=== PATIENT | male | born 1995 | race Caucasian/White ===

== ENCOUNTER 2017-04-11 12:19 | Emergency (ER) | payer BC ==
[~2017-04-11] VITALS: Ht 185.4 cm; Wt 77.2 kg
[2017-04-11 12:25] VITALS: TEMP 37.7; Ht 185.4 cm; Wt 77.2 kg
[2017-04-11] MEDS ORDERED: CEFTRIAXONE SOD 350MG/ML 1 GM VIAL IM STA (12:40)
[2017-04-11] MEDS ORDERED: PENI-82 PO (12:44)
[2017-04-11] MEDS ORDERED: AZIT250T PO (12:44)
--- NOTE | 2017-04-11 12:45 | EMERGENCY ROOM VISIT NOTE ---
History First contact with patient: 12:28 Chief Complaint: SORETHROAT Stated Complaint: SORETHROAT, CHILLS, FEVER, OVERALL WEAKNESS History of Present Illness The patient is a 21 year old male who presents to the Emergency Room with complaints of sore throat. The patient states that he pulled an old miter several nights. He states that he has been sleeping a lot over the last 3-4 days. He developed a sore throat and fever 3-4 days ago. The sore throat has worsened. He rates his discomfort a 5/10. He denies any pain in his chest or trouble breathing. He denies any abdominal pain, nausea or vomiting. He denies any known sick contacts. The patient states that he did have a sexual encounter with a male and performed oral sex. He is concern for potential sexually transmitted infection. Review of Systems A 10 system review of systems was completed with positives and pertinent negatives listed in the HPI. Past Medical/Surgical History none Social History Smoking Status: Never Smoker Marital Status: single Occupation Status: [employer] student Current/Historical Medications Scheduled Azithromycin (Zithromax), 1,000 MG PO DAILY Penicillin V Potassium (Veetids), 500 MG PO QID Physical Exam Vital Signs Date Time Temp Pulse Resp B/P (MAP) Pulse Ox O2 Delivery O2 Flow Rate FiO2 04/11/17 13:15 88 16 105/58 98 04/11/17 12:25 98 Room Air 04/11/17 12:25 37.7 99 18 109/70 98 Room Air Physical Exam VITALS: Vitals are noted on the nurse's note and reviewed by myself. Vital signs stable. The temperature is 37.7C. GENERAL: This is a 21-year-old male, in no acute distress, nondiaphoretic, well- developed well-nourished. SKIN: The skin was without rashes, erythema, edema, or bruising. There is no tenting of the skin. Capillary reflex less than 2 seconds. HEAD: Normocephalic atraumatic. EARS: External auditory canals clear, tympanic membranes pearly carroll without erythema or effusion bilaterally. EYES: Pupils equal round and reactive to light and accommodation. Conjunctivae without injection, sclerae without icterus. Extraocular movements intact. NOSE: Patent, turbinates without inflammation or discharge. MOUTH: Mucous membranes moist. There are ulcerations in the posterior pharynx. There is erythematous. There is exudate. There is no uvula deviation. There is no soft palate involvement, drooling or trismus. NECK: Supple without nuchal rigidity. No lymphadenopathy. No thyromegaly. Cervical spine is nontender. No JVD. HEART: Regular rate and rhythm without murmurs gallops or rubs. LUNGS: Clear to auscultation bilaterally without wheezes, rales or rhonchi. No dullness to percussion. No retractions or accessory muscle use. MUSCULOSKELETAL: No muscle atrophy, erythema, or edema noted. Full range of motion in all extremities. Strength 5/5 throughout. NEURO: Patient was alert and oriented to person place and time. No focal neurological deficits. Medical Decision & Procedures Medications Administered Medications (Trade) Dose Ordered Sig/Aletha Route Start Time Stop Time Status Last Admin Dose Admin Ceftriaxone Sodium (Rocephin Im) 250 mg NOW STAT IM 04/11/17 12:40 04/11/17 12:41 DC 04/11/17 13:07 250 MG ED Course The patient was seen and examined. The patient presents to the emergency department with sore throat and low-grade fever. The patient does have erythema and ulceration in the posterior pharynx. There is no sign of peritonsillar abscess. There is no significant drainage. I do suspect strep pharyngitis. However, the patient states that he did have a sexual encounter with a male and performed oral sex. He is concerned of possible STD such as gonococcal pharyngitis. The patient is also quite concerned because his insurance is from [place] and he is not certain if anything will be covered here or how much he will be required to pay. I did offer to perform rapid strep and swab for gonorrhea. The patient would like to defer testing at this time and did ask for information for free outpatient STD testing. I did give him this information. Given the appearance of the throat, I will treat the patient with SameearVeflavio Reyes. Additionally, given the patient's recent sexual encounter and potential high risk behavior, he will be treated with 250 mg IM Rocephin and 1 g of oral Zithromax. He should return with any worsening symptoms. I did advise him that the potential that this could represent mononucleosis. I advised him to watch for rash. I advised him to follow up if he is not feeling any better in 5-7 days. He should return sooner with any worsening symptoms. Medical Decision The differential diagnosis includes viral illness, strep pharyngitis, mononucleosis, peritonsillar abscess, gonococcal pharyngitis, among others Medication Reconcilliation Current Medication List: was personally reviewed by me Blood Pressure Screening Patient's blood pressure: Normal blood pressure Blood pressure disposition: Did not require urgent referral Impression Primary Impression: Pharyngitis Departure Information Dispostion Home / Self-Care Prescriptions Penicillin V Potassium (Veetids) 500 Mg Tab 500 MG PO QID for 10 Days, #40 TAB Prov: Sophy Mendez PA-C 04/11/17 Azithromycin (Zithromax) 250 Mg Tab 1000 MG PO DAILY for 1 Day, #4 TAB Prov: Sophy Mendez PA-C 04/11/17 Referrals No Doctor, Assigned (PCP) Patient Instructions [facility] Additional Instructions Tylenol or ibuprofen according to package instructions for pain/fever Take the Zithromax 1 g 1 time. Rocephin and Zithromax will treat gonorrhea and chlamydia. Penicillin as prescribed, until finished to treat potential strep throat Follow up with one of the outpatient clinics for free STD testing Return with any worsening symptoms Problem Qualifiers Primary Impression: Pharyngitis
[2017-04-11 13:15] VITALS: BP 105/58; PULSE 88; O2SAT 98
== END 2017-04-11 13:16 | disposition home or self-care (01) ==
LOC: C.EDB 12:21 → C.EDD 13:16
DX: J02.9 Acute pharyngitis, unspecified (principal)

== ENCOUNTER 2017-10-20 23:44 | Emergency (ER) | payer BC ==
[~2017-10-20] VITALS: Ht 185.4 cm; Wt 73.4 kg
[~2017-10-20 23:44] MED LIST: NEOM1SUS21 OT
[2017-10-20 23:53] VITALS: TEMP 36.7; Ht 185.4 cm; Wt 73.4 kg
--- NOTE | 2017-10-21 00:06 | EMERGENCY ROOM VISIT NOTE ---
History Report prepared by Katherin: Zackery Juarez Under the Supervision of: Dr. Isaac Márquez M.D. First contact with patient: 00:00 Chief Complaint: VOMITING Stated Complaint: NAUSEA, VOMITING, EAR ISSUES Nursing Triage Summary: vomitted x 3 yesterday. still nauseated today but was able to eat and drink throughout the day today. - abd pain History of Present Illness The patient is a 21 year old male who presents to the Emergency Room with complaints of intermittent vomiting beginning yesterday. The patient states he vomited three times yesterday and was not able to eat anything because his stomach was upset. He reports he is also experiencing nausea yesterday and all of today. The patient notes he tried taking Pepto Bismol, but it did not help. He states his ears are also blocked. The patient reports the last thing he ate before his symptoms started was a piece of cheese. He notes he did not have diarrhea, but his stool was black. The patient states he believes his black stool was secondary to the Pepto. He denies a history of chronic diseases, abdominal pain, and fast food consumption. Source of History: patient Onset: yesterday Symptom Intensity: 3 times Quality: other (vomiting) Timing: intermittent Associated Symptoms: + nausea, No abdominal pain Note: Associated symptoms: black stool Review of Systems See HPI for pertinent positives & negatives. A total of 10 systems reviewed and were otherwise negative. Past Medical & Surgical Surgical Problems: (1) History of tonsillectomy Family History Cancer Diabetes mellitus Heart disease Hypertension Kidney disease Kidney stones Social History Smoking Status: Never Smoker Smokeless Tobacco Use: No Alcohol Use: occasionally Marital Status: single Housing Status: lives with roommate Occupation Status: [employer] student Current/Historical Medications Scheduled Ondasetron Odt (Zofran Odt), 4 MG SL Q6H Allergies Coded Allergies: No Known Allergies (Unverified , 10/21/17) Physical Exam Vital Signs Date Time Temp Pulse Resp B/P (MAP) Pulse Ox O2 Delivery O2 Flow Rate FiO2 10/21/17 00:44 63 18 117/67 97 Room Air 10/21/17 00:31 74 10/21/17 00:28 74 10/20/17 23:53 36.7 83 18 117/73 97 Room Air Physical Exam GENERAL: Awake, alert, well-appearing, in no acute distress HENT: Normocephalic, atraumatic. Oropharynx unremarkable. EYES: Normal conjunctiva. Sclera non-icteric. NECK: Supple. No nuchal rigidity. FROM. No JVD. RESPIRATORY: Clear to auscultation. CARDIAC: Regular rate, normal rhythm. Extremities warm and well perfused. Pulses equal. ABDOMEN: Soft, benign, non-distended. No tenderness to palpation. No rebound or guarding. No masses. RECTAL: Deferred. MUSCULOSKELETAL: Chest examination reveals no tenderness. The back is symmetrical on inspection without obvious abnormality. There is no CVA tenderness to palpation. No joint edema. LOWER EXTREMITIES: Calves are equal size bilaterally and non-tender. No edema. No discoloration. NEURO: Normal sensorium. No sensory or motor deficits noted. SKIN: No rash or jaundice noted. Medical Decision & Procedures ER Provider Diagnostic Interpretation: X-ray results as stated below per interpretation by me: One view of chest per my interpretation: Shows no evidence of pneumonia, pneumothorax, or congestion. Three view of the abdomen per my interpretation: Shows a fair amount of stool, no evidence of obstruction or free air. Laboratory Results 10/21/17 00:10 Red Blood Count 5.09, Mean Corpuscular Volume 91.9, Mean Corpuscular Hemoglobin 32.8, Mean Corpuscular Hemoglobin Concent 35.7, Mean Platelet Volume 9.5, Neutrophils (%) (Auto) 49.3, Lymphocytes (%) (Auto) 29.4, Monocytes (%) (Auto) 17.3, Eosinophils (%) (Auto) 3.6, Basophils (%) (Auto) 0.2, Neutrophils # (Auto ) 2.33, Lymphocytes # (Auto) 1.39, Monocytes # (Auto) 0.82, Eosinophils # (Auto ) 0.17, Basophils # (Auto) 0.01 10/21/17 00:10 Test 10/21/17 00:10 White Blood Count 4.73 K/uL (4.8-10.8) Red Blood Count 5.09 M/uL (4.7-6.1) Hemoglobin 16.7 g/dL (14.0-18.0) Hematocrit 46.8 % (42-52) Mean Corpuscular Volume 91.9 fL (80-100) Mean Corpuscular Hemoglobin 32.8 pg (25-34) Mean Corpuscular Hemoglobin Concent 35.7 g/dl (32-36) Platelet Count 189 K/uL (130-400) Mean Platelet Volume 9.5 fL (7.4-10.4) Neutrophils (%) (Auto) 49.3 % Lymphocytes (%) (Auto) 29.4 % Monocytes (%) (Auto) 17.3 % Eosinophils (%) (Auto) 3.6 % Basophils (%) (Auto) 0.2 % Neutrophils # (Auto) 2.33 K/uL (1.4-6.5) Lymphocytes # (Auto) 1.39 K/uL (1.2-3.4) Monocytes # (Auto) 0.82 K/uL (0.11-0.59) Eosinophils # (Auto) 0.17 K/uL (0-0.5) Basophils # (Auto) 0.01 K/uL (0-0.2) RDW Standard Deviation 45.9 fL (36.4-46.3) RDW Coefficient of Variation 13.7 % (11.5-14.5) Immature Granulocyte % (Auto) 0.2 % Immature Granulocyte # (Auto) 0.01 K/uL (0.00-0.02) Urine Color YELLOW Urine Appearance CLEAR (CLEAR) Urine pH 7.0 (4.5-7.5) Urine Specific [place] 1.024 (1.000-1.030) Urine Protein NEG (NEG) Urine Glucose (UA) NEG (NEG) Urine Ketones NEG (NEG) Urine Occult Blood 1+ (NEG) Urine Nitrite NEG (NEG) Urine Bilirubin NEG (NEG) Urine Urobilinogen POS (NEG) Urine Leukocyte Esterase NEG (NEG) Urine WBC (Auto) 1-5 /hpf (0-5) Urine RBC (Auto) 10-30 /hpf (0-4) Urine Hyaline Casts (Auto) 0 /lpf (0-5) Urine Epithelial Cells (Auto) 5-10 /lpf (0-5) Urine Bacteria (Auto) NEG (NEG) Anion Gap 3.0 mmol/L (3-11) Est Creatinine Clear Calc Drug Dose 142.7 ml/min Estimated GFR () 144.4 Estimated GFR (Non- 124.6 BUN/Creatinine Ratio 16.4 (10-20) Calcium Level 8.8 mg/dl (8.5-10.1) Total Bilirubin 1.2 mg/dl (0.2-1) Direct Bilirubin 0.2 mg/dl (0-0.2) Aspartate Amino Transf (AST/SGOT) 13 U/L (15-37) Alanine Aminotransferase (ALT/SGPT) 24 U/L (12-78) Alkaline Phosphatase 46 U/L (45-117) Total Protein 7.5 gm/dl (6.4-8.2) Albumin 3.8 gm/dl (3.4-5.0) Lipase 174 U/L (73-393) Labs reviewed by ED physician. Medications Administered Medications (Trade) Dose Ordered Sig/Aletha Route Start Time Stop Time Status Last Admin Dose Admin Sodium Chloride 1,000 ml @ 999 mls/hr Q1H1M STAT IV 10/21/17 00:08 10/21/17 01:08 DC 10/21/17 00:42 999 MLS/HR Ketorolac Tromethamine (Toradol Inj) 30 mg NOW STAT IV 10/21/17 00:08 10/21/17 00:10 DC 10/21/17 00:46 30 MG Ondansetron HCl (Zofran Inj) 4 mg NOW STAT IV 10/21/17 00:08 10/21/17 00:10 DC 10/21/17 00:45 4 MG Ondansetron HCl (ZOFRAN ODT 4MG Home Pack) 1 homepack UD ONCE PO 10/21/17 01:15 10/21/17 01:16 DC 10/21/17 01:25 1 HOMEPACK ED Course 0001: Past medical records reviewed. The patient was evaluated in room A10. A complete history and physical examination was performed. 0008: Ordered Ondansetron HCl 4mg IV, Toradol Inj 30mg IV, Sodium Chloride 1000 ml @ 999 mls/hr 0113: Upon reexamination the patient is resting comfortably. I offered to call the patient's parents; he denied. I completed another physical examination. It was consistent with the first exam - soft and benign abdomen. I discussed results and treatment plan with the patient. He verbalizes agreement and understanding. The patient is ready for discharge after he receives his medication. 0115: Ordered Ondansetron HCl 1 homepack PO Medical Decision Differential diagnosis: Etiologies such as gastroenteritis, food borne illness, infections, appendicitis , diverticulitis, inflammatory bowel disease, obstruction, GI bleed, biliary pathology, as well as others were entertained. This is a 21-year-old male presents the emergency department planing of gastroenteritis-like symptoms. Serial abdominal examinations were performed on the patient in the emergency department at no time to the patient exhibits surgical abdomen or even abdominal tenderness. Based on these findings along with the fact that the patient has a normal white blood cell count normal renal profile normal liver profile normal lipase and using shared medical decision making with the patient we felt that a CAT scan does not show any acute process. We also declined this due to the effects of radiation exposure. I also offered to call this patient's parents however he refused. An IV was established, the patient is given normal saline bolus, Toradol, Zofran. Repeat examination revealed improvement the patient's symptoms. The patient was able to tolerate p.o. Gatorade here in the emergency department. Medication Reconcilliation Current Medication List: was personally reviewed by me Blood Pressure Screening Patient's blood pressure: Normal blood pressure Blood pressure disposition: Did not require urgent referral Impression Primary Impression: Vomiting Scribe Attestation The scribe's documentation has been prepared under my direction and personally reviewed by me in its entirety. I confirm that the note above accurately reflects all work, treatment, procedures, and medical decision making performed by me. Departure Information Dispostion Home / Self-Care Prescriptions Ondasetron Odt (ZOFRAN ODT) 4 Mg Tab 4 MG SL Q6H for Nausea, #6 TAB Prov: Isaac Márquez MD 10/21/17 Referrals No Doctor, Assigned (PCP) Forms HOME CARE DOCUMENTATION FORM, IMPORTANT VISIT INFORMATION Patient Instructions ED Diet Vomiting Diarrhea, ED Nausea Vomiting, My [facility] Additional Instructions Radiographs and CTs will be reread by a radiologist in the morning. You have been examined and treated today on an emergency basis only. This is not a substitute for, or an effort to provide, complete comprehensive medical care. It is impossible to recognize and treat all injuries or illnesses in a single emergency department visit. It is therefore important that you follow up closely with [facility]. Call as soon as possible for an appointment. Thank you for your time and consideration. I look forward to speaking with you again soon. Please don't hesitate to call us if you have any questions. Problem Qualifiers Primary Impression: Vomiting Vomiting type: unspecified Vomiting Intractability: unspecified Nausea presence: unspecified Qualified Codes: R11.10 - Vomiting, unspecified
[2017-10-21] MEDS ORDERED: KETOROLAC TROMETHAMINE 30 MG/ML VIAL IV STA (00:08)
[2017-10-21] MEDS ORDERED: SODIUM CHLORIDE 0.9% 1000ML 1,000 ML IV STA (00:08)
[2017-10-21] MEDS ORDERED: ONDANSETRON INJ 2 MG/ML 2 ML VIAL IV STA (00:08)
[2017-10-21 00:47] LABS: BASO % 0.2 %; BASO ABS # 0.01 K/uL (0-0.2); EOS % 3.6 %; EOS ABS # 0.17 K/uL (0-0.5); HEMATOCRIT 46.8 % (42-52); HEMOGLOBIN 16.7 g/dL (14.0-18.0); IG# 0.01 K/uL (0.00-0.02); LYMPH % 29.4 %; LYMPH ABS # 1.39 K/uL (1.2-3.4); MEAN CELL VOLUME 91.9 fL (80-100); MEAN CORPUSCULAR HEMOGLOBIN 32.8 pg (25-34); MEAN CORPUSCULAR HGB CONC 35.7 g/dl (32-36); MEAN PLATELET VOLUME 9.5 fL (7.4-10.4); MONO % 17.3 %; MONO ABS # 0.82 K/uL (0.11-0.59); NEUT % 49.3 %; NEUT ABS # 2.33 K/uL (1.4-6.5); PLATELET COUNT 189 K/uL (130-400); RED CELL DISTRIBUTION WIDTH CV 13.7 % (11.5-14.5); RED CELL DISTRIBUTION WIDTH SD 45.9 fL (36.4-46.3); WHITE BLOOD COUNT 4.73 K/uL (4.8-10.8)
[2017-10-21 01:06] LABS: ALBUMIN 3.8 gm/dl (3.4-5.0); CALCIUM 8.8 mg/dl (8.5-10.1); CREATININE 0.85 mg/dl (0.60-1.40); POTASSIUM 3.7 mmol/L (3.5-5.1)
[2017-10-21 01:09] LABS: TOTAL PROTEIN 7.5 gm/dl (6.4-8.2)
[2017-10-21] MEDS ORDERED: ONDANSETRON HOME PACK 4MG OD TAB PO ONE (01:15)
[2017-10-21] MEDS ORDERED: ONDA4TAB10 SL (01:17)
[2017-10-21 02:05] VITALS: BP 106/57; PULSE 72; O2SAT 100
--- NOTE | 2017-10-21 06:01 | DIAGNOSTIC IMAGING REPORT ---
ABDOMEN 2VIEW W/PA CHEST RTN CLINICAL HISTORY: 21 years-old Male presenting with Pt c/o abd pain, nausea and vomiting since yesterday. TECHNIQUE: PA view of the chest and supine and upright views of the abdomen were obtained. COMPARISON: None. FINDINGS: Cardiomediastinal silhouette normal. Lungs and pleural spaces clear. Nonobstructive bowel gas pattern. No gross pneumoperitoneum. Allowing for bowel gas and stool, no calcifications to suggest nephrolithiasis. Osseous structures normal. IMPRESSION: 1. No acute cardiopulmonary disease. 2. No radiographic evidence of acute intra-abdominal pathology. Electronically signed by: Jim Leary M.D. 10/21/2017 6:00 AM Dictated Date/Time: 10/21/2017 5:59 AM
== END 2017-10-21 02:05 | disposition home or self-care (01) ==
LOC: C.EDB 23:45 → C.EDA 10-21 02:05
DX: R11.2 Nausea with vomiting, unspecified (principal); Z90.89 Acquired absence of other organs; Z83.3 Family history of diabetes mellitus; Z82.49 Family history of ischemic heart disease and other diseases of the circulatory system; Z84.1 Family history of disorders of kidney and ureter